=== PATIENT | male | born 1975 | race Caucasian/White ===

== ENCOUNTER 2019-04-28 13:57 | Day surgery (SDC) | payer OTHER ==
[~2019-04-28 13:57] MED LIST: ALBU3IS INH; DIAZ10 PO; GABA300T24 PO; HEPARIN 50500 UNIT/5 IV; Klor-Con 1010 MEQ PO; MAGNESIUM OXID500 MG PO; MILK THISTLE140 MG PO; NARCAN4 MG; OXYC30ER PO; PROAIR RESPICL90 MCG IA; PROBIOTIC250 MG PO; PROMETHAZINE-P118 M1 PO; SPIR25 PO; TIOT18 INH; TRAZ100 PO; TURMERIC 500 M1 EACH PO
[2019-04-28 14:53] LABS: BASOPHILS ABSOLUTE AUTO 0.05 K/mm3 (0.00-0.23); BASOPHILS PERCENT AUTO 1 % (0-2); EOSINOPHILS ABSOLUTE AUTO 0.24 K/mm3 (0.00-0.68); EOSINOPHILS PERCENT AUTO 5 % (0-6); Hematocrit 40.7 % (37.0-53.0); Hemoglobin 13.2 g/dL (13.5-17.5); IMMATURE GRAN ABSOLUTE AUTO 0.02 K/mm3 (0.00-0.10); IMMATURE GRAN PERCENT AUTO 0 % (0-1); LYMPHOCYTES ABSOLUTE AUTO 1.81 K/mm3 (0.84-5.20); LYMPHOCYTES PERCENT AUTO 34 % (21-46); MONOCYTES ABSOLUTE AUTO 0.36 K/mm3 (0.16-1.47); MONOCYTES PERCENT AUTO 7 % (4-13); Mean Corpuscular HGB 28.4 pg (26.0-34.0); Mean Corpuscular HGB Conc 32.4 g/dL (31.5-36.5); Mean Corpuscular Volume 88 fL (80-100); Mean Platelet Volume 8.7 fL (9.1-12.4); NEUTROPHILS ABSOLUTE AUTO 2.89 K/mm3 (1.96-9.15); NEUTROPHILS PERCENT AUTO 54 % (41-73); Platelet Count 171 K/mm3 (150-400); RDW Coefficient Variation 13.5 % (11.7-14.2); RDW Standard Deviation 43.1 fL (35.1-46.3); Red Blood Cell Count 4.65 M/mm3 (4.30-5.90); White Blood Cell Count 5.37 K/mm3 (4.00-11.30)
== END 2019-04-28 14:45 | disposition home or self-care (01) ==
LOC: ATC 13:57
PROVIDERS: Student in an Organized Health Care Education/Training Program
DX: K74.60 Unspecified cirrhosis of liver (principal); I89.0 Lymphedema, not elsewhere classified; R91.8 Other nonspecific abnormal finding of lung field; F33.41 Major depressive disorder, recurrent, in partial remission; J43.9 Emphysema, unspecified; F41.1 Generalized anxiety disorder; K76.6 Portal hypertension; B18.2 Chronic viral hepatitis C; G89.3 Neoplasm related pain (acute) (chronic); Z79.899 Other long term (current) drug therapy
CPT/HCPCS: 36591; 85025; 85730; J1642